=== PATIENT | female | born 1945 | race Caucasian/White ===

== ENCOUNTER → 2017-09-03 09:41 | Outpatient (CLI) | payer MEDICARE ==
--- NOTE | ~2017-09-03 | EC ---
PATIENT:THANIA MCBRIDE DATE OF SERVICE: 09/03/17 SEX: F MEDICAL RECORD: [id number] DATE OF : 41 LOCATION:[facility] AGE OF PATIENT: 71 ADMISSION DATE: 09/03/17 REFERRING PHYSICIAN: INTERPRETING PHYSICIAN: GRIS SANCHEZ MD ECHOCARDIOGRAM REPORT ECHO CHARGES 4 ECHO COMPLETE Date: 09/03 CLINICAL DIAGNOSIS: PALPS,ANGINA,DYSPNEA,CP ECHOCARDIOGRAPHIC MEASUREMENTS (adult normal given) AC root (d.<3.7cm) 3.4 cm LV Septum d (<1.2 cm> 1.7 cm Valve Excursion 1.5 cm LV Septum (systole) 1.9 cm Left Atria (s.<4.0cm> 3.7 cm LVPW d(<1.2cm) 2.0 cm RV (d.<2.3cm) 4.0 cm LVPW (sytole) 2.1 cm LV diastole(<5.6CM) 3.8 cm MV E-F(>70mm/sec) cm LV systole 2.6 cm LVOT Diameter 1.6 cm MV exc.(>10mm) 1.7 cm Est.ejection fraction (50-75%) % DOPPLER: LVIT cm/sec A 138 cm/sec E 92.0 cm/sec LA cm/sec RVSP 29 mmHg LVOT 133 cm/sec AOP1/2T m/s Asc. Ao 186 cm/sec RVOT 98 cm/sec RA cm/sec PA 133 cm/sec AV Gradient Peak 13.87mmHg AV Mean 7.77 mmHg AV Area 1.6 cm MV Gradient Peak 9.45 mmHg MV Mean 2.76 mmHg MV Area cm COMMENTS: Double Back Operator: Sumit LEONG Carton Counter Feeder: Javier Sanchez TAPE# PACS Pericardial Effusion N DATE OF SERVICE: FINDINGS: 1. The patient underwent transthoracic echocardiogram showing moderate concentric left ventricular hypertrophy, diastolic dysfunction, ejection fraction 60%. 2. Left atrium has normal size, shape, and function. 3. Mitral valve is normal. No significant regurgitation. 4. Tricuspid valve is normal. No significant regurgitation. RVSP is normal. Pericardium is normal. ECHOCARDIOGRAM REPORT [id number] THANIA MCBRIDE 5. The right ventricle and right atrium are mildly dilated, normal function. 6. Pulmonic valve has mild pulmonic insufficiency. CONCLUSION: The patient has evidence of hypertensive heart disease. TRANSINT:[id number] Voice Confirmation ID: [id number] DOCUMENT ID: [id number] GRIS SANCHEZ MD at 1029 CC: [id number] DICTATION DATE: 09/03/17 1102 MANUFACTURING SHIFT SUPERVISOR: 09/03/17 1123 DEP CLI 09/03/17 [place] [id number]
== END | disposition home or self-care (01) ==
LOC: D.ECHO 09:41
DX: R00.2 Palpitations (principal); I20.9 Angina pectoris, unspecified; R06.09 Other forms of dyspnea; R07.9 Chest pain, unspecified

== ENCOUNTER → 2017-09-03 15:49 | Outpatient (CLI) | payer MEDICARE ==
[2017-09-03 16:33] LABS: CHOL - HDL RATIO 2.2 ratio (2.3-4.1); LDL-HDL RATIO 1.1 ratio (1.5-3.5); T4 THYROXIN - FREE 1.15 ng/dL (0.76-1.46); THYROID STIMULATING HORMONE 2.08 uIU/mL (0.36-3.74)
== END | disposition home or self-care (01) ==
LOC: D.LABREF 15:49
PROVIDERS: Internal Medicine Cardiovascular Disease
DX: R00.2 Palpitations (principal); E78.5 Hyperlipidemia, unspecified